=== PATIENT | male | born 1990 | race Caucasian/White ===

== ENCOUNTER 2018-01-29 11:47 | Emergency (ER) | payer OTHER ==
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
[2018-01-29] MEDS ORDERED: LET GEL TOPICAL 1 EA SYR TP ONE ×2 (11:55→12:44)
[2018-01-29] MEDS ORDERED: ACETAMINOPHEN 500 MG TAB PO ONE (14:06)
[2018-01-29] MEDS ORDERED: ONDANSETRON 4 MG/2 ML VIAL ONE (14:08)
== END 2018-01-29 14:31 | disposition home or self-care (01) ==
PROC: 0CQ0XZZ Repair Upper Lip, External Approach (ICD-10-PCS; principal; 2018-01-29)
DX: S06.0X1A Concussion with loss of consciousness of 30 minutes or less, initial encounter (principal); S01.511A Laceration without foreign body of lip, initial encounter; S00.91XA Abrasion of unspecified part of head, initial encounter; S80.211A Abrasion, right knee, initial encounter; S40.211A Abrasion of right shoulder, initial encounter; R40.2411 Glasgow coma scale score 13-15, in the field [EMT or ambulance]; V18.0XXA Pedal cycle driver injured in noncollision transport accident in nontraffic accident, initial encounter; Y93.55 Activity, bike riding; Y92.830 Public park as the place of occurrence of the external cause; Y99.8 Other external cause status
CPT/HCPCS: J2405